=== PATIENT | male | born 1980 | race Hispanic/Latino ===

== ENCOUNTER 2018-01-30 18:18 | Emergency (ER) | payer BC ==
[2018-01-30] MEDS ORDERED: IBUPROFEN 800 MG TAB ONE (19:13)
== END 2018-01-30 20:34 | disposition home or self-care (01) ==
LOC: EDH 18:18
DX: S16.1XXA Strain of muscle, fascia and tendon at neck level, initial encounter (principal); V49.49XA Driver injured in collision with other motor vehicles in traffic accident, initial encounter; Y93.89 Activity, other specified; Y92.89 Other specified places as the place of occurrence of the external cause; Y99.8 Other external cause status
CPT/HCPCS: 72125